=== PATIENT | female | born 1985 | race Caucasian/White ===

== ENCOUNTER 2016-07-02 05:32 | Inpatient (IN) | payer OTHER ==
[~2016-07-02] VITALS: Ht 172.7 cm; Wt 97.1 kg
[2016-07-03 02:39] LABS: HEMOGLOBIN 7.8 gm/dl (12.3-15.3)
[2016-07-04] MEDS ORDERED: FERROUS SULFAT325 M2 PO (11:38)
== END 2016-07-04 12:57 | disposition home or self-care (01) | DRG 765 ==
LOC: OB 05:32
PROVIDERS: ADMIT Obstetrics & Gynecology
PROC: 10D00Z1 Extraction of Products of Conception, Low, Open Approach (ICD-10-PCS; principal; 2016-07-02 10:45)
DX: O75.89 Other specified complications of labor and delivery (principal); D62 Acute posthemorrhagic anemia; G40.909 Epilepsy, unspecified, not intractable, without status epilepticus; O24.420 Gestational diabetes mellitus in childbirth, diet controlled; O99.334 Smoking (tobacco) complicating childbirth; F17.210 Nicotine dependence, cigarettes, uncomplicated; O44.03 Complete placenta previa NOS or without hemorrhage, third trimester; Z3A.37 37 weeks gestation of pregnancy; Z37.0 Single live birth; O34.211 Maternal care for low transverse scar from previous cesarean delivery; N85.8 Other specified noninflammatory disorders of uterus; L81.8 Other specified disorders of pigmentation; Z87.440 Personal history of urinary (tract) infections
CPT/HCPCS: 36415; 80048; 81001; 82800; 82962; 85014; 85018; 85025; 86850; 86900; 86901; 90715; C9113; J0690; J2210; J2274; J2405; J2590; J2765; J3010; J7120

== ENCOUNTER 2021-05-08 20:06 | Emergency (ER) | payer OTHER ==
[~2021-05-08 20:06] MED LIST: FERROUS SULFAT325 M2 PO
[2021-05-08 22:02] LABS: HEMOGLOBIN 13.6 gm/dl (12.3-15.3); RED BLOOD COUNT 4.56 M/UL (4.00-5.10); WHITE BLOOD COUNT 11.2 K/UL (4.5-11.0)
== END 2021-05-09 01:12 | disposition home or self-care (01) ==
LOC: ER1 20:06
PROVIDERS: Emergency Medicine
DX: O20.9 Hemorrhage in early pregnancy, unspecified (principal); Z3A.10 10 weeks gestation of pregnancy
CPT/HCPCS: 84702; 85025; 99284

== ENCOUNTER 2021-11-13 13:33 | Outpatient (CLI) | payer OTHER ==
[2021-11-13 14:06] LABS: HEMOGLOBIN 12.6 gm/dl (12.3-15.3); RED BLOOD COUNT 4.17 M/UL (4.00-5.10)
[2021-11-14] MEDS ORDERED: FERROUS SULFAT325 MG PO (09:22)
[2021-11-14] MEDS ORDERED: IBUPROFEN600 MG PO (09:22)
[2021-11-14] MEDS ORDERED: COLACE100 MG PO (09:22)
== END 2021-11-13 14:16 | disposition home or self-care (01) ==
LOC: GENOP 13:33
PROVIDERS: Obstetrics & Gynecology
DX: Z01.812 Encounter for preprocedural laboratory examination (principal)
CPT/HCPCS: 36415; 81001; 85025

== ENCOUNTER 2021-11-13 19:01 | Inpatient (IN) | payer OTHER ==
[~2021-11-13] VITALS: Ht 172.7 cm; Wt 108.9 kg
[2021-11-14] MEDS ORDERED: COLACE100 MG PO (09:22)
[2021-11-14] MEDS ORDERED: FERROUS SULFAT325 MG PO (09:22)
[2021-11-14] MEDS ORDERED: IBUPROFEN600 MG PO (09:22)
[2021-11-15] MEDS ORDERED: HYDROCODONE-AC1 EACH PO (11:10)
[2021-11-15] MEDS ORDERED: IBUPROFEN600 MG PO (11:10)
[2021-11-15] MEDS ORDERED: DOCUSATE SODIU250 MG PO (11:10)
== END 2021-11-15 14:24 | disposition home or self-care (01) | DRG 788 ==
LOC: GENOP 19:01 → OB 21:47
PROVIDERS: ADMIT Obstetrics & Gynecology
PROC: 4A1HXCZ Monitoring of Products of Conception, Cardiac Rate, External Approach (ICD-10-PCS; 2021-11-13)
PROC: 3E0234Z Introduction of Serum, Toxoid and Vaccine into Muscle, Percutaneous Approach (ICD-10-PCS; 2021-11-13)
PROC: 10D00Z1 Extraction of Products of Conception, Low, Open Approach (ICD-10-PCS; principal; 2021-11-13 21:49)
DX: O34.211 Maternal care for low transverse scar from previous cesarean delivery (principal); Z3A.37 37 weeks gestation of pregnancy; Z37.0 Single live birth; O99.334 Smoking (tobacco) complicating childbirth; F17.290 Nicotine dependence, other tobacco product, uncomplicated; O99.344 Other mental disorders complicating childbirth; F41.9 Anxiety disorder, unspecified; Z82.49 Family history of ischemic heart disease and other diseases of the circulatory system; O99.62 Diseases of the digestive system complicating childbirth; K66.0 Peritoneal adhesions (postprocedural) (postinfection); Z81.8 Family history of other mental and behavioral disorders; Z80.3 Family history of malignant neoplasm of breast; Z82.5 Family history of asthma and other chronic lower respiratory diseases; Z81.1 Family history of alcohol abuse and dependence; Z82.0 Family history of epilepsy and other diseases of the nervous system; Z88.6 Allergy status to analgesic agent; Z23 Encounter for immunization
CPT/HCPCS: 36415; 82800; 85014; 85018; 90715; J2270